=== PATIENT | male | born 1970 | race Caucasian/White ===

== ENCOUNTER → 2021-08-08 | Outpatient (CLI) | payer BC | LOC: M.MRI 08-03 13:30 | PROVIDERS: ATTEND Family Medicine | DX: M47.817 Spondylosis without myelopathy or radiculopathy, lumbosacral region (principal); M51.37 Other intervertebral disc degeneration, lumbosacral region; M51.27 Other intervertebral disc displacement, lumbosacral region; M48.061 Spinal stenosis, lumbar region without neurogenic claudication; M51.35 Other intervertebral disc degeneration, thoracolumbar region; M54.41 Lumbago with sciatica, right side ==